=== PATIENT | male | born 1960 | race African-American/Black ===

== ENCOUNTER 2017-01-28 05:42 | Inpatient (IN) ==
[2017-01-28] MEDS ORDERED: ceFAZolin 1,000 MG VIAL ONE (05:48)
[2017-01-28] MEDS ORDERED: VANCOMYCIN 1,000 MG VIAL ONE ×2 (05:48→06:47)
[2017-01-28] MEDS ORDERED: SODIUM CHLORIDE 0.9% 100 ML IV ONE (05:49)
[2017-01-28] MEDS ORDERED: VANCOMYCIN INJ 1,000 MG in SODIUM CHLORIDE 0.9% 250 ML IV ONE ×2 (06:00→19:00)
[2017-01-28] MEDS: LACTATED RINGERS 1,000 ML IV SCH ×4 (06:29→17:50)
--- NOTE | 2017-01-28 06:38 | History and Physical Update ---
History and Physical Update - History and Physical H&P was reviewed, the patient examined and there: are no changes in the patients condition since last H&P was completed.
[2017-01-28] MEDS ORDERED: BACITRACIN OINT 0.9 GM PACK TOP ONE (06:46)
[2017-01-28] MEDS ORDERED: PROPOFOL 200 MG/20 ML VIAL IV ONE (07:00)
[2017-01-28] MEDS ORDERED: LIDOCAINE 100 MG/5 ML SYRINGE ONE (07:00)
[2017-01-28] MEDS ORDERED: ONDANSETRON 4 MG/2 ML VIAL ONE (07:00)
[2017-01-28] MEDS ORDERED: TRANEXAMIC ACID 1,000 MG/10 ML VIAL IV ONE (07:34)
--- NOTE | 2017-01-28 08:32 | Operative Note ---
Date of procedure: 01/28/17 Procedure: DIAGNOSIS: Left knee primary osteoarthrosis PROCEDURE: Left total knee arthroplasty (cpt #29606) SURGEON: Tyrell RIVET MACHINE OPERATOR: Edgar Mcdaniel ANESTHESIA: Spinal with a postoperative abductor canal block PROCEDURE and FINDINGS: After adequate was induced, the patient's knee was prepped and draped in the usual sterile fashion. The limb was exsanguinated with Esmarch. Tourniquet was inflated to 300 mmHg. A median parapatellar approach was made. Femur was cut using an intramedullary guide and a 4 in 1 cutting jig in 5 degrees of valgus. ACL and menisci were excised. Tibia was cut using intramedullary guide. Patella was cut using freehand technique. Components were trialed. Tibial fin was prepared. Components are cemented in place using Palacos cement and modern cementing techniques. Cement was removed. A 1/8 inch Hemovac drain was placed. The knee was well-balanced and full range of motion with central tracking patella. Deep layers closed with 0-0 Vicryl. Superficial layers were closed with 2-0 and 3-0 Vicryl. Skin was approximated with diane. Bacitracin and a sterile dressing was applied. Patient was transferred to recovery. A postoperative adductor canal block is anticipated. COMPONENTS: The Anne Persona system was used. 11 CR femur, D natural tibia, 10 mm liner, 35 mm patella TOURNIQUET TIME: 36 minutes Surgeon / Physician: Ted Santillan Jr. Discharge Plan - Discharge Medications No Action Colchicine [Colcrys] 0.6 mg PO DAILY Fluticasone 50 Mcg Nasal [place] [Flonase Nasal [place]] 2 spray BOTH NARES DAILY Aspirin EC Tab 81 mg PO DAILY Pravastatin [Pravachol] 40 mg PO BEDTIME Furosemide 20 mg PO DAILY Carvedilol [Coreg] 3.125 mg PO BID Potassium Chloride 20 meq PO DAILY Losartan Potassium [Cozaar] 100 mg PO DAILY Amlodipine/Valsartan [Amlodipine-Valsartan 5-320 mg] 5 each PO DAILY - Follow Up or Referral - Forms/Instructions
[2017-01-28] MEDS ORDERED: diphenhydrAMINE CAP 25 MG CAPSULE PO PRN (08:33)
[2017-01-28] MEDS ORDERED: ONDANSETRON 4 MG/2 ML VIAL IV PRN (08:33)
[2017-01-28] MEDS ORDERED: oxyCODONE IR 5 MG TABLET PO PRN ×2 (08:33)
[2017-01-28] MEDS ORDERED: ZALEPLON 5 MG CAPSULE PO PRN ×2 (08:33→21:00)
[2017-01-28] MEDS ORDERED: MORPHINE 2 MG/1 ML SYRINGE IV PRN (08:36)
[2017-01-28] MEDS ORDERED: fentaNYL 100 MCG/2 ML VIAL ONE (08:44)
[2017-01-28] MEDS ORDERED: ACETAMINOPHEN 1,000 MG/100 ML VIAL IV ONE (08:45)
[2017-01-28] MEDS ORDERED: ROPIVACAINE 0.5% 30 ML VIAL ONE (08:45)
[2017-01-28] MEDS ORDERED: MIDAZOLAM 2 MG/2 ML VIAL ONE (08:45)
[2017-01-28] MEDS ORDERED: LOSARTAN 50 MG TABLET PO SCH (09:00)
--- NOTE | 2017-01-28 09:52 | XRay Report ---
History: Postop total knee replacement Date: 01/28/2017 Study: Left knee 2 views Comparison exam: No previous available The patient is immediately status post left knee replacement. The left knee prosthesis is well conjugated. There is no acute fracture or radiographic evidence of complication otherwise. Skin diane and surgical drains overlie the soft tissues anterior to the knee. Impression: Postop total left knee replacement PROCEDURE INTERPRETED AT [facility] DEPARTMENT OF RADIOLOGY Final Report Signed by: Dr. Camille Harry
--- NOTE | 2017-01-28 10:00 | Anesthesia Post-Op ---
Anesthesia Post OP - Post Ansesthetic Evaluation Patient seen in post op: Yes Resp: within normal limits CV: within normal limits Mental: within normal limits Temp: within normal limits Wegl-Yo-Visiinduu: within normal limits Nausea and Vomiting: within normal limits Pain: within normal limits
[2017-01-28 10:40] LABS: Basophils % 0.6 % (0.0-0.8); Eosinophils # 0.1 10*3/uL (0.0-0.87); Eosinophils % 1.9 % (0.00-10.9); Hematocrit 37.4 VOL% (42.0-52.0); Hemoglobin 12.3 GM/DL (14.0-18.0); Immature Granulocytes % 0.3 %; Immature Granulocytes Absolute 0.02 #; Lymphocytes # 2.4 10*3/uL (1.4-4.0); Lymphocytes % 35.3 % (21.2-54.2); Mean Corpuscular HGB Conc 32.9 GM/DL (32-36); Mean Corpuscular Hemoglobin 30 PG (27-34); Mean Corpuscular Volume 90.6 FL (87-102); Mean Platelet Volume 11.5 FL (9.6-12.0); Monocytes # 0.4 10*3/uL (0.11-0.8); Monocytes % 6.6 % (1.7-12.7); Neutrophils # 3.7 10*3/uL (1.4-7.4); Neutrophils % 55.3 % (38.7-73.9); Platelet Count 143 T/CUMM (130-400); Red Blood Count 4.13 MC/CUMM (3.8-5.5); Red Cell Distribution Width 13.7 % (9.3-17.3); White Blood Count 6.7 T/CUMM (4-12)
[2017-01-28 11:16] LABS: Calcium 8.2 MG/DL (8.5-10.1); Potassium 4.4 MMOL/L (3.5-5.1)
[2017-01-28] MEDS: ACETAMINOPHEN 500 MG TABLET PO SCH ×3 (12:33→23:54)
[2017-01-28] MEDS: KETOROLAC 30 MG/1 ML VIAL IV SCH ×3 (12:34→20:33)
[2017-01-28] MEDS: MORPHINE 2 MG/1 ML SYRINGE IV PRN ×2 (12:38→18:56)
[2017-01-28] MEDS: CARVEDILOL 3.125 MG TABLET PO SCH ×2 (12:45→21:43)
[2017-01-28] MEDS: FLUTICASONE 50 MCG NASAL SPRAY 16 GM BOTTLE BOTH NARES SCH (12:50)
[2017-01-28] MEDS: ceFAZolin 2,000 MG in PREMIX 1 EACH IV SCH ×2 (12:51→21:44)
[2017-01-28] MEDS: DOCUSATE SODIUM 100 MG CAPSULE PO SCH ×2 (13:02→20:33)
[2017-01-28] MEDS: FUROSEMIDE 20 MG TABLET PO SCH (13:03)
[2017-01-28] MEDS: POTASSIUM CHLORIDE 20 MEQ TABLET PO SCH (13:04)
--- NOTE | 2017-01-28 14:12 | Pulmonology Progress Note ---
Pulmonary - PN: Subj Interval history: Patient is a 56-year-old that has significant degenerative arthritis. He came in today and had a left knee arthroplasty. He apparently has spinal anesthesia. He has a large man that has hypertension but has been fairly healthy. He says he did well with anesthesia and is not having any breathing trouble. He says his leg is sore but is starting to move around a little. Overall he feels like he is doing well Exam (Progress Note) - Constitutional Vitals: Period Temp Pulse Resp BP Sys/Patrick Pulse Ox Last 24 Hr 97.5 F-98.2 F 55-85 16-20 106-168/61-94 97-100 General appearance: no acute distress, over weight - Head Head exam: Present: normal inspection, normocephalic - Eye Eye exam: Present: EOMI. Absent: scleral icterus Pupils: Present: KENRICK - ENT ENT exam: Present: normal exam, other (He has a class III Mallampati exam) - Neck Neck exam: Present: normal inspection. Absent: lymphadenopathy, thyromegaly - Respiratory Respiratory exam: Present: clear to auscultation bilaterally. Absent: wheezes - Cardiovascular Cardiovascular exam: Present: regular rate and rhythm, systolic murmur. Absent : gallop - GI/Abdominal GI/Abdominal exam: Present: normal bowel sounds, soft. Absent: distended, organomegaly, tenderness - Extremities Exam Extremities exam: Present: other (The left leg is wrapped.) - Neurological Exam Neurological exam: Present: alert, oriented X3, CN II-XII intact - Psychiatric Psychiatric exam: Present: normal affect, normal mood - Skin Skin exam: Present: warm, dry Results - Labs CBC & BMP: 01/28/17 10:32 01/28/17 10:32 Assessment and Plan (1) Osteoarthritis Status: Acute Assessment and plan: The patient has considerable arthritis in his knees and came in for left knee arthroplasty. He is doing well postop. Current Visit: Yes (2) History of arthroplasty of left knee Status: Acute Assessment and plan: The patient has had surgery on his knee today and is doing well. He had no problems with anesthesia. Current Visit: Yes (3) Hypertension Status: Acute Assessment and plan: His blood pressure is borderline high at present and we will continue close observation. Current Visit: Yes (4) Suspected sleep apnea Status: Acute Assessment and plan: He likely has some sleep apnea and may require CPAP if he has any problems breathing. Current Visit: Yes
--- NOTE | 2017-01-28 14:44 | Orthopedic Progress Note ---
Orthopedics - Subjective Interval history: Mr. Her is comfortable. Dressing is clean, dry and intact. Left foot and ankle are neurovascularly unchanged. Plan: Mobilize with physical therapy and continue with orders. Exam - Constitutional Vitals: Period Temp Pulse Resp BP Sys/Patrick Pulse Ox Last 24 Hr 97.5 F-98.2 F 55-85 16-20 106-168/61-94 97-100 Results - Labs CBC & BMP: 01/28/17 10:32 01/28/17 10:32
[2017-01-28] MEDS: PRAVASTATIN 40 MG TABLET PO SCH (20:33)
[2017-01-29] MEDS: KETOROLAC 30 MG/1 ML VIAL IV SCH (02:28)
[2017-01-29] MEDS: FONDAPARINUX 2.5 MG/0.5 ML SYRINGE SUBCUT SCH (02:31)
[2017-01-29] MEDS: LACTATED RINGERS 1,000 ML IV SCH ×3 (02:45→15:07)
[2017-01-29 06:15] LABS: Basophils % 0.5 % (0.0-0.8); Eosinophils # 0.2 10*3/uL (0.0-0.87); Eosinophils % 2.9 % (0.00-10.9); Hematocrit 36.5 VOL% (42.0-52.0); Hemoglobin 11.9 GM/DL (14.0-18.0); Immature Granulocytes % 0.2 %; Immature Granulocytes Absolute 0.02 #; Mean Corpuscular HGB Conc 32.6 GM/DL (32-36); Mean Corpuscular Hemoglobin 29 PG (27-34); Mean Corpuscular Volume 89.9 FL (87-102); Mean Platelet Volume 12.1 FL (9.6-12.0); Monocytes # 0.7 10*3/uL (0.11-0.8); Monocytes % 8.7 % (1.7-12.7); Neutrophils # 5.4 10*3/uL (1.4-7.4); Neutrophils % 63.7 % (38.7-73.9); Platelet Count 145 T/CUMM (130-400); Red Blood Count 4.06 MC/CUMM (3.8-5.5); Red Cell Distribution Width 13.5 % (9.3-17.3); White Blood Count 8.4 T/CUMM (4-12)
[2017-01-29] MEDS: ACETAMINOPHEN 500 MG TABLET PO SCH (06:44)
[2017-01-29 06:54] LABS: Calcium 8.1 MG/DL (8.5-10.1); Osmolality,Calculated 281.3 MOS/KG (273-304); Potassium 3.7 MMOL/L (3.5-5.1)
--- NOTE | 2017-01-29 07:38 | Orthopedic Progress Note ---
Orthopedics - Subjective Interval history: Mr. Her is comfortable this morning. He sat in the chair a long time yesterday. Dressing clean, dry and intact. Left lower extremity neurovascularly unchanged. Plan: Mobilize with physical therapy today. Routine postop day 1 instructions. Exam - Constitutional Vitals: Period Temp Pulse Resp BP Sys/Patrick Pulse Ox Last 24 Hr 97.5 F-99.6 F 55-83 16-20 106-163/61-91 94-100 Results - Labs CBC & BMP: 01/29/17 04:58 01/29/17 04:58
[2017-01-29] MEDS: VALSARTAN 160 MG TABLET PO SCH (08:57)
[2017-01-29] MEDS: amLODIPine 5 MG TABLET PO SCH (08:57)
[2017-01-29] MEDS: COLCHICINE 0.6 MG TABLET PO SCH (08:57)
[2017-01-29] MEDS: CARVEDILOL 3.125 MG TABLET PO SCH ×2 (08:58→21:30)
[2017-01-29] MEDS: DOCUSATE SODIUM 100 MG CAPSULE PO SCH ×2 (08:58→21:31)
[2017-01-29] MEDS: FUROSEMIDE 20 MG TABLET PO SCH (08:58)
[2017-01-29] MEDS: POTASSIUM CHLORIDE 20 MEQ TABLET PO SCH (08:59)
[2017-01-29] MEDS: FLUTICASONE 50 MCG NASAL SPRAY 16 GM BOTTLE BOTH NARES SCH (08:59)
--- NOTE | 2017-01-29 09:12 | Pulmonology Progress Note ---
Pulmonary - PN: Subj Interval history: Patient is a 56-year-old that has significant degenerative arthritis. He came in and had a left knee arthroplasty. He set up a good bit yesterday and feels fairly well today. He is eating well and not having any shortness of breath. He says is going to move around more today. His left knee is feeling okay at present. Exam (Progress Note) - Constitutional Vitals: Period Temp Pulse Resp BP Sys/Patrick Pulse Ox Last 24 Hr 97.5 F-99.6 F 57-83 16-20 119-163/65-91 94-100 Exam: General appearance: no acute distress, over weight, he is sitting up eating and looks comfortable. - Head Head exam: Present: normal inspection, normocephalic - Eye Eye exam: Present: EOMI. Absent: scleral icterus Pupils: Present: KENRICK - ENT ENT exam: Present: normal exam, other (He has a class III Mallampati exam) - Neck Neck exam: Present: normal inspection. Absent: lymphadenopathy, thyromegaly - Respiratory Respiratory exam: Present: clear to auscultation bilaterally. Absent: wheezes - Cardiovascular Cardiovascular exam: Present: regular rate and rhythm, systolic murmur. Absent : gallop - GI/Abdominal GI/Abdominal exam: Present: normal bowel sounds, soft. Absent: distended, organomegaly, tenderness - Extremities Exam Extremities exam: Present: other (The left leg is wrapped.) There is no increased pain or swelling. - Neurological Exam Neurological exam: Present: alert, oriented X3, CN II-XII intact - Psychiatric Psychiatric exam: Present: normal affect, normal mood - Skin Skin exam: Present: warm, dry Results - Labs CBC & BMP: 01/29/17 04:58 01/29/17 04:58 Assessment and Plan (1) Osteoarthritis Status: Acute Assessment and plan: The patient has considerable arthritis in his knees and came in for left knee arthroplasty. He did well with surgery and is feeling better. Current Visit: Yes (2) History of arthroplasty of left knee Status: Acute Assessment and plan: The patient has had surgery on his knee today and is doing well. He had no problems with anesthesia. He is moving around fairly well now. Current Visit: Yes (3) Hypertension Status: Acute Assessment and plan: His blood pressure is borderline high at present and we will continue close observation. He appears to be stable. His Diovan will be restarted. Current Visit: Yes (4) Suspected sleep apnea Status: Acute Assessment and plan: He likely has some sleep apnea and may require CPAP if he has any problems breathing. Current Visit: Yes
[2017-01-29] MEDS: CELECOXIB 200 MG CAPSULE PO SCH (16:57)
[2017-01-29] MEDS: PRAVASTATIN 40 MG TABLET PO SCH (21:31)
[2017-01-30] MEDS: FONDAPARINUX 2.5 MG/0.5 ML SYRINGE SUBCUT SCH (01:59)
[2017-01-30 05:33] LABS: Basophils % 0.3 % (0.0-0.8); Eosinophils # 0.3 10*3/uL (0.0-0.87); Hematocrit 34.6 VOL% (42.0-52.0); Hemoglobin 11.6 GM/DL (14.0-18.0); Immature Granulocytes % 0.7 %; Immature Granulocytes Absolute 0.06 #; Lymphocytes # 1.8 10*3/uL (1.4-4.0); Lymphocytes % 19.4 % (21.2-54.2); Mean Corpuscular HGB Conc 33.5 GM/DL (32-36); Mean Corpuscular Hemoglobin 29 PG (27-34); Mean Corpuscular Volume 87.8 FL (87-102); Mean Platelet Volume 12.3 FL (9.6-12.0); Monocytes # 0.9 10*3/uL (0.11-0.8); Monocytes % 9.5 % (1.7-12.7); Neutrophils # 6.1 10*3/uL (1.4-7.4); Neutrophils % 67.1 % (38.7-73.9); Platelet Count 155 T/CUMM (130-400); Red Blood Count 3.94 MC/CUMM (3.8-5.5); Red Cell Distribution Width 13.7 % (9.3-17.3); White Blood Count 9.1 T/CUMM (4-12)
--- NOTE | 2017-01-30 08:04 | Orthopedic Progress Note ---
Orthopedics - Subjective Interval history: Mr. Her is comfortable. He was able to walk down the sw[place] this morning with physical therapy. His dressing shows scant serosanguineous drainage. His left lower extremity is neurovascularly unchanged. Plan: Mobilize with physical therapy. Plan discharge to swing bed tomorrow. Exam - Constitutional Vitals: Period Temp Pulse Resp BP Sys/Patrick Pulse Ox Last 24 Hr 97.8 F-100.2 F 88-107 17-20 144-156/74-92 92-97 Results - Labs CBC & BMP: 01/30/17 04:59 01/29/17 04:58
--- NOTE | 2017-01-30 08:53 | Pulmonology Progress Note ---
Pulmonary - PN: Subj Interval history: Patient is a 56-year-old that has significant degenerative arthritis. He came in and had a left knee arthroplasty. He said he had a fairly good day yesterday and is walking some. The left knee is sore but doing better. He has not had a bowel movement yet but he is eating well. He still is not having any breathing problems. Exam (Progress Note) - Constitutional Vitals: Period Temp Pulse Resp BP Sys/Patrick Pulse Ox Last 24 Hr 97.8 F-100.2 F 88-107 17-20 144-169/74-92 92-97 Exam: General appearance: no acute distress, over weight, he is sitting up and does not appear to be in any distress. - Head Head exam: Present: normal inspection, normocephalic - Eye Eye exam: Present: EOMI. Absent: scleral icterus Pupils: Present: KENRICK - ENT ENT exam: Present: normal exam, other (He has a class III Mallampati exam) - Neck Neck exam: Present: normal inspection. Absent: lymphadenopathy, thyromegaly - Respiratory Respiratory exam: Present: clear to auscultation bilaterally. Absent: wheezes - Cardiovascular Cardiovascular exam: Present: regular rate and rhythm, systolic murmur. Absent : gallop - GI/Abdominal GI/Abdominal exam: Present: normal bowel sounds, soft. Absent: distended, organomegaly, tenderness - Extremities Exam Extremities exam: Present: other (The left leg is wrapped.) He has mild swelling but no tenderness. - Neurological Exam Neurological exam: Present: alert, oriented X3, CN II-XII intact - Psychiatric Psychiatric exam: Present: normal affect, normal mood - Skin Skin exam: Present: warm, dry Results - Labs CBC & BMP: 01/30/17 04:59 01/29/17 04:58 Assessment and Plan (1) Osteoarthritis Status: Acute Assessment and plan: The patient has considerable arthritis in his knees and came in for left knee arthroplasty. He did well with surgery and is feeling better. He is starting to do more activity. Current Visit: Yes (2) History of arthroplasty of left knee Status: Acute Assessment and plan: The patient has had surgery on his left knee and is doing well postop. He will continue with physical therapy. Current Visit: Yes (3) Hypertension Status: Acute Assessment and plan: His blood pressure has been reasonably stable and he is taking his medicines. Current Visit: Yes (4) Suspected sleep apnea Status: Acute Assessment and plan: He likely has some sleep apnea and may require CPAP if he has any problems breathing. Current Visit: Yes
[2017-01-30] MEDS: FUROSEMIDE 20 MG TABLET PO SCH (10:01)
[2017-01-30] MEDS: CARVEDILOL 3.125 MG TABLET PO SCH ×2 (10:01→20:29)
[2017-01-30] MEDS: amLODIPine 5 MG TABLET PO SCH (10:02)
[2017-01-30] MEDS: COLCHICINE 0.6 MG TABLET PO SCH (10:02)
[2017-01-30] MEDS: DOCUSATE SODIUM 100 MG CAPSULE PO SCH ×2 (10:02→21:47)
[2017-01-30] MEDS: VALSARTAN 160 MG TABLET PO SCH (10:03)
[2017-01-30] MEDS: POTASSIUM CHLORIDE 20 MEQ TABLET PO SCH (10:03)
[2017-01-30] MEDS: CELECOXIB 200 MG CAPSULE PO SCH (10:03)
[2017-01-30] MEDS: FLUTICASONE 50 MCG NASAL SPRAY 16 GM BOTTLE BOTH NARES SCH (10:04)
[2017-01-30] MEDS: MAGNESIUM HYDROXIDE SUSP 30 ML UDCUP PO PRN (10:05)
[2017-01-30] MEDS: PRAVASTATIN 40 MG TABLET PO SCH (21:48)
[2017-01-31] MEDS: FONDAPARINUX 2.5 MG/0.5 ML SYRINGE SUBCUT SCH (02:30)
[2017-01-31] MEDS: MAGNESIUM HYDROXIDE SUSP 30 ML UDCUP PO PRN (05:48)
[2017-01-31 06:45] LABS: Basophils # 0.1 10*3/uL (0.0-0.2); Basophils % 0.6 % (0.0-0.8); Eosinophils # 0.3 10*3/uL (0.0-0.87); Eosinophils % 3.5 % (0.00-10.9); Hemoglobin 11.2 GM/DL (14.0-18.0); Immature Granulocytes % 0.3 %; Immature Granulocytes Absolute 0.03 #; Lymphocytes # 2.6 10*3/uL (1.4-4.0); Lymphocytes % 29.4 % (21.2-54.2); Mean Corpuscular HGB Conc 32.9 GM/DL (32-36); Mean Corpuscular Hemoglobin 29 PG (27-34); Mean Corpuscular Volume 89.2 FL (87-102); Monocytes # 0.9 10*3/uL (0.11-0.8); Monocytes % 10.5 % (1.7-12.7); Neutrophils % 55.7 % (38.7-73.9); Platelet Count 167 T/CUMM (130-400); Red Blood Count 3.81 MC/CUMM (3.8-5.5); White Blood Count 8.9 T/CUMM (4-12)
[2017-01-31] MEDS: FUROSEMIDE 20 MG TABLET PO SCH (08:38)
[2017-01-31] MEDS: CELECOXIB 200 MG CAPSULE PO SCH (08:39)
[2017-01-31] MEDS: COLCHICINE 0.6 MG TABLET PO SCH (08:39)
[2017-01-31] MEDS: DOCUSATE SODIUM 100 MG CAPSULE PO SCH (08:40)
[2017-01-31] MEDS: CARVEDILOL 3.125 MG TABLET PO SCH (08:40)
[2017-01-31] MEDS: amLODIPine 5 MG TABLET PO SCH (08:40)
[2017-01-31] MEDS: POTASSIUM CHLORIDE 20 MEQ TABLET PO SCH (08:40)
--- NOTE | 2017-01-31 08:53 | Pulmonology Progress Note ---
Pulmonary - PN: Subj Interval history: Patient is a 56-year-old that has significant degenerative arthritis. He came in and had a left knee arthroplasty. He said he had a fairly good day yesterday and is walking some. The left knee is sore but doing better. He is moving around some and is feeling a little better. He is having a bowel movement today. He will continue with physical therapy. Exam (Progress Note) - Constitutional Vitals: Period Temp Pulse Resp BP Sys/Patrick Pulse Ox Last 24 Hr 97.5 F-99.2 F 85-101 18-20 135-158/72-91 91-97 Exam: General appearance: no acute distress, over weight, he is sitting up and does not appear to be in any distress. - Head Head exam: Present: normal inspection, normocephalic - Eye Eye exam: Present: EOMI. Absent: scleral icterus Pupils: Present: KENRICK - ENT ENT exam: Present: normal exam, other (He has a class III Mallampati exam) - Neck Neck exam: Present: normal inspection. Absent: lymphadenopathy, thyromegaly - Respiratory Respiratory exam: Present: clear to auscultation bilaterally. He is moving air well. Absent: wheezes - Cardiovascular Cardiovascular exam: Present: regular rate and rhythm, systolic murmur. Absent : gallop - GI/Abdominal GI/Abdominal exam: Present: normal bowel sounds, soft. Absent: distended, organomegaly, tenderness - Extremities Exam Extremities exam: Present: other (The left leg is wrapped.) He has mild swelling but no tenderness. - Neurological Exam Neurological exam: Present: alert, oriented X3, CN II-XII intact - Psychiatric Psychiatric exam: Present: normal affect, normal mood - Skin Skin exam: Present: warm, dry Results - Labs CBC & BMP: 01/31/17 05:20 01/29/17 04:58 Assessment and Plan (1) Osteoarthritis Status: Acute Assessment and plan: The patient has considerable arthritis in his knees and came in for left knee arthroplasty. He did well with surgery and is feeling better. He is starting to do more activity. He should be able to go soon. Current Visit: Yes (2) History of arthroplasty of left knee Status: Acute Assessment and plan: The patient has had surgery on his left knee and is doing well postop. He will continue with physical therapy. Current Visit: Yes (3) Hypertension Status: Acute Assessment and plan: His blood pressure has been reasonably stable and he is taking his medicines. He is stable medically. Current Visit: Yes (4) Suspected sleep apnea Status: Acute Assessment and plan: He likely has some sleep apnea and may require CPAP if he has any problems breathing. Current Visit: Yes Specialty Discharge - Follow Up or Referrals Follow up with: Ted Santillan Jr., MD [Physician] -
--- NOTE | 2017-01-31 08:55 | Discharge Summary ---
Hospital Course - Hospital Course Hospital Course: Mr. Her was admitted after undergoing an uncomplicated left total knee replacement. Received perioperative DVT and antimicrobial prophylaxis. Dr. Nunes from pulmonology was consulted to help manage his medical problems perioperatively. He was discharged to swing bed in stable condition. Left lower extremity is neurovascularly intact. His dressing is clean, dry and intact. Specialty Discharge - Follow Up or Referrals Follow up with: Ted Santillan Jr., MD [Physician] - Discharge Plan - Discharge Data Disposition: Disch/Xfer to Snf Condition at Discharge: Stable Discharge Diet: advance to your usual diet Hygiene: may shower Weight Bearing at Discharge: weight bear as tolerated Driving: not until seen by doctor - Discharge Medications New Docusate Sodium Cap [Colace Cap] 100 mg PO BID capsule Fondaparinux [Arixtra] 2.5 mg SUBCUT Q24H 7 Days HYDROcodone/ACETAMIN 7.5-325 [[place] 7.5-325] 1 tablet PO Q4H PRN #0 tablet PRN Reason: Pain Moderate (4-7) Celecoxib [Celebrex] 200 mg PO DAILY capsule HYDROcodone/ACETAMIN 7.5-325 [[place] 7.5-325] 2 tablet PO Q4H PRN #0 tablet PRN Reason: Moderate Pain unrelieved by 1 Continue Fluticasone 50 Mcg Nasal [place] [Flonase Nasal [place]] 2 spray BOTH NARES DAILY Pravastatin [Pravachol] 40 mg PO BEDTIME Furosemide 20 mg PO DAILY Carvedilol [Coreg] 3.125 mg PO BID Potassium Chloride 20 meq PO DAILY Amlodipine/Valsartan [Amlodipine-Valsartan 5-320 mg] 1 tablet PO DAILY - Follow Up or Referral Follow Up: Ted Santillan Jr., MD [Physician] - - Forms/Instructions Instructions: Total Knee Replacement (DC) Exam - Constitutional Vitals: Period Temp Pulse Resp BP Sys/Patrick Pulse Ox Last 24 Hr 97.5 F-99.2 F 85-101 18-20 135-158/72-91 91-97 Discharge Results Labs on day of discharge: Labs from last 24 hours 01/31/17 05:20 WBC 8.9 RBC 3.81 Hgb 11.2 L Hct 34.0 L MCV 89.2 MCH 29 MCHC 32.9 RDW 14.0 Plt Count 167 MPV 12.0 Neut % (Auto) 55.7 Lymph % (Auto) 29.4 [place] % (Auto) 10.5 Eos % (Auto) 3.5 Baso % (Auto) 0.6 Neut # (Auto) 5.0 Lymph # (Auto) 2.6 [place] # (Auto) 0.9 H Eos # (Auto) 0.3 Baso # (Auto) 0.1 Immature Gran % 0.3 Nucleated RBC % 0.0 Immature Gran # 0.03 Nucleated RBCs # 0.00 DS: Provider Date of admission: 01/28/17 05:42 Primary care physician: . No PCP Attending physician on admission: Ted Santillan Jr., Consults: 01/28/17 08:33 Consult to Case Mgmt/Social Srvs [CONS] Routine Reason for Case Mgmt/Social Srvs: Rehab Home Health Equipment Consult Comment: Bedside Commode, CPM, Walker Consult to Occupational Therapy [CONS] Routine Reason for Occupational Therapy: Evaluate and Treat Consult Comment: ADL's Consult to Physical Therapy [CONS] Routine Reason for Physical Therapy: Evaluate and Treat Gait Training Start Therapy: Today 01/28/17 09:59 Consult to Physician [CONS] Routine Comment: Consulting Provider: Chevy Nunes Consulting Provider Notified: Yes When should Consulting Provider be notified: Now Person Notified: serenity porter Date Notified: 01/28/17 Time Notified: 10:00 Discharging clinician: Ted Santillan Jr., Expected date of discharge: 01/31/17
[2017-01-31] MEDS: VALSARTAN 160 MG TABLET PO SCH (08:58)
--- NOTE | 2017-01-31 10:45 | Physician Query Form ---
CLICK EDIT DOCUMENT TO SELECT QUERY ANSWER --> OK --> SIGN Massiel Wang RN Clinical Director [employer] W) [phone] (f) [phone] [email or web address]: Make your selection(s) from the choices in EACH section by typing an "x" and enter comments in the comment section. Please use your independent medical judgment in providing your response. This request does not imply that any particular answer is desired or expected. CLINICAL INDICATORS: (Providers should not edit this section) Height: 5ft 11in Weight: 338 lbs Insurance Risk Analyst BMI: 47.2 If applicable, please provide an associated diagnosis related to the abnormal BMI: BMI of 40 or greater: ( ) Overweight ( ) Obesity ( x) Morbid//Severe Obesity ( ) Obesity with Alveolar Hypoventilation ( ) Weight Gain ( ) BMI is not significant ( ) Other, please specify: ( ) Clinically unable to determine COMMENTS: Use of terms such as suspected, likely, or probable (associated with a specific diagnosis that is being evaluated, monitored, or treated as if it exists) are acceptable and can be restated in the discharge summary if not ruled out. MTDD
[2017-01-31] MEDS: FLUTICASONE 50 MCG NASAL SPRAY 16 GM BOTTLE BOTH NARES SCH (11:11)
--- NOTE | 2017-01-31 11:22 | Pathology Report from [facility] ---
ACCESSION # : [id number] PATIENT NAME : Jose Suresh ORDERING DR : PHILIPP EDOUARD MD CLINICAL HX: Left knee osteoarthritis POST-OP DX: Same SPECIMEN INFO: Left knee bone and tissue GROSS DESCRIPTION: The speicmen is received in formalin labeled "JOSE SURESH/ LEFT KNEE" consists of an aggregate of bone, soft tissue and cartilage measuring 1.3.0 x 7.0 cm. The articular surfaces are focally degenerative with no subchondral eburnation seen. Fur Grader tissue submitted in one cassette. DIAGNOSIS FOR JOSE SURESH: Fragments of left knee joint showing changes of degenerative joint disease/ osteoarthritis. SERVICE DATE: 01/28/2017 REPORT DATE: 01/31/2017 PATHOLOGIST: Warren Gonzalez M.D. [facility]
[2017-01-31 11:53] VITALS: BP 128/66
== END 2017-01-31 13:25 | disposition swing bed (61) | DRG 470 ==
LOC: N.SDSINP 05:42 → N.3E 09:38
PROVIDERS: ADMIT Orthopaedic Surgery; ATTEND Orthopaedic Surgery